=== PATIENT | female | born 1945 | race Caucasian/White ===

== ENCOUNTER 2023-07-03 10:39 | Outpatient (REF) | payer MEDICARE, SELFPAY ==
[2023-07-03 13:55] LABS: Hematocrit 49.9 % (37.0-47.0); Hemoglobin 16.3 g/dl (12.0-16.0); Mean Corpuscular HGB Conc 32.7 g/dl (31.0-35.0); Mean Corpuscular Hemoglobin 31.2 pg (27.0-33.0); Mean Corpuscular Volume 95.4 fL (80.0-98.0); Mean Platelet Volume 10.9 fL (9.4-12.3); Platelet Count 374 X10*3/uL (160-400); Red Blood Count 5.23 X10*6/uL (4.20-5.50); Red Cell Distribution Width 13.6 % (11.0-16.0); White Blood Count 11.3 X10*3/uL (4.8-10.8)
[2023-07-03 14:07] LABS: Alanine Aminotransferase 23 U/L (0-31); Albumin Level 4.4 g/dL (3.5-5.0); Alkaline Phosphatase 90 U/L (39-117); Anion Gap 15 (12-20); Aspartate Amino Transferase 17 U/L (5-31); Bilirubin Total 0.4 mg/dL (0.0-1.0); Blood Urea Nitrogen 13 mg/dL (9-16); Calcium 10.2 mg/dL (8.4-10.2); Carbon Dioxide 27 mmol/L (22-29); Chloride 103 mmol/L (96-108); Cholesterol 259 mg/dL; Estimated Glomerular Filt Rate 57; Glucose Fasting 108 mg/dL (60-99); HDL Cholesterol 77 mg/dL; LDL Cholesterol Calculated 152 mg/dl; Potassium 3.5 mmol/L (3.3-5.1); Sodium 141 mmol/L (135-145); Total Protein 7.6 g/dL (6.5-8.0); Triglycerides 150 mg/dL
[2023-07-03 14:24] LABS: SLIDE REVIEW MANUAL DIFF
[2023-07-03 14:26] LABS: Thyroid Stimulating Hormone 1.16 uIU/mL (0.32-4.0)
[2023-07-03 15:35] LABS: Band Neutrophils Percent 0 % (3-5); Lymphocytes Absolute Manual 5.8 X10*3/uL (1.2-4.9); Lymphocytes Percent Manual 51 % (20-40); Monocytes Absolute Manual 0.9 X10*3/uL (0.1-1.2); Monocytes Percent Manual 8 % (2-11); Neutrophils Absolute Manual 4.6 X10*3/uL (2.0-8.3); Neutrophils Percent Manual 41 % (45-73)
[2023-07-03 15:36] LABS: Platelet Estimate NORMAL (NORMAL); Platelet Morphology Comment NORMAL; RBC Morphology NORMAL; Smudge Cells PRESENT
== END 2023-07-03 10:40 | disposition home or self-care (01) ==
LOC: HO.HMGCLDS 10:39
PROVIDERS: PCP Internal Medicine; Visit Provider Internal Medicine
DX: I10 Essential (primary) hypertension (principal); E78.00 Pure hypercholesterolemia, unspecified; R60.0 Localized edema
CPT/HCPCS: 36415; 80053; 80061; 84443; 85007; 85025; 85027

== ENCOUNTER 2024-09-30 11:30 | Outpatient (REF) | payer MEDICARE, SELFPAY ==
[2024-09-30 13:35] LABS: MANUAL DIFF FLAG NO
[2024-09-30 13:40] LABS: Basophils Absolute Auto 0.1 X10*3/uL (0.0-0.2); Basophils Percent Auto 0.8 % (0-2); Eosinophils Absolute Auto 0.1 X10*3/uL (0.0-0.4); Eosinophils Percent Auto 0.6 % (0-4); Hematocrit 48.8 % (37.0-47.0); Hemoglobin 15.9 g/dl (12.0-16.0); Imm Gran Abs Auto 0.03 X10*3/uL (0.00-0.03); Imm Gran Pct Auto 0.3 % (0.0-0.4); Lymphocytes Absolute Auto 4.6 X10*3/uL (1.2-4.9); Lymphocytes Percent Auto 43.3 % (20-40); Mean Corpuscular HGB Conc 32.6 g/dl (31.0-35.0); Mean Corpuscular Hemoglobin 30.9 pg (27.0-33.0); Mean Corpuscular Volume 94.8 fL (80.0-98.0); Mean Platelet Volume 10.5 fL (9.4-12.3); Monocytes Absolute Auto 0.9 X10*3/uL (0.1-1.2); Platelet Count 362 X10*3/uL (160-400); Red Blood Count 5.15 X10*6/uL (4.20-5.50); Red Cell Distribution Width 13.3 % (11.0-16.0); White Blood Count 10.7 X10*3/uL (4.8-10.8)
[2024-09-30 14:32] LABS: Alanine Aminotransferase 19 U/L (0-31); Albumin Level 4.5 g/dL (3.5-5.0); Alkaline Phosphatase 84 U/L (39-117); Anion Gap 15 (12-20); Aspartate Amino Transferase 24 U/L (5-31); Bilirubin Total 0.5 mg/dL (0.0-1.0); Blood Urea Nitrogen 17 mg/dL (9-16); Calcium 10.8 mg/dL (8.4-10.2); Carbon Dioxide 24 mmol/L (22-29); Chloride 105 mmol/L (96-108); Cholesterol 246 mg/dL (<200); Estimated Glomerular Filt Rate > 60; Glucose Random 107 mg/dL (60-115); HDL Cholesterol 74 mg/dL (>40); LDL Cholesterol Calculated 148 mg/dL (<100); Potassium 3.7 mmol/L (3.3-5.1); Sodium 140 mmol/L (135-145); Total Protein 7.6 g/dL (6.5-8.0); Triglycerides 123 mg/dL (<150)
[2024-09-30 14:38] LABS: Vitamin D 25-OH Total 34.4 ng/mL (>30)
== END 2024-09-30 11:31 | disposition home or self-care (01) ==
LOC: HO.10HDL 11:30
PROVIDERS: Visit Provider Internal Medicine
DX: I10 Essential (primary) hypertension (principal); E78.00 Pure hypercholesterolemia, unspecified; R60.0 Localized edema
CPT/HCPCS: 36415; 80053; 80061; 82306; 84443; 85025

== ENCOUNTER 2025-09-15 11:27 | Outpatient (AMB) | payer MEDICARE, SELFPAY ==
--- NOTE | 2025-09-15 11:04 | A.OFFPC_ITS ---
Vital Signs 09/15/25 11:33 Height 5 ft 8 in Weight 172 lb 2 oz BMI 26.2 BP 148/90 H Blood Pressure Location Rt brachial Position Sitting Pulse 74 Pulse Source Pulse Oximeter Temp 97.1 F Temp Source Temporal Artery Scan Pulse Oximetry (%) 98 Oxygen Delivery Method Room Air Intake Visit Reasons: NARCISO / Dr Erickson Dishwasher Required: No Accompanied by: Self / Same As Patient Allergies No Known Allergies Allergy (Verified 09/15/25 11:05) Medication List - Last Reconciled 09/15/25 by Ryland Mills MD amlodipine 10 mg PO DAILY losartan 100 mg PO DAILY Tobacco use date assessed: 09/15/25 Fall risk assessment: No Falls in past year Last assessed Fall Risk: 09/15/25 Dental Screening Dental Screen Date: 09/15/25 Did you have a dental visit in the last 12 months?: No Did you have a dental problem in the last 6 months where you did not have access to dental care?: No HPI HPI Comments History of Present Illness Details The patient is a 80-year-old female presenting for a new patient evaluation and management of chronic conditions. She has a history of hypertension, for which she currently takes amlodipine 10 mg and losartan 100 mg. She reports having stopped furosemide about four years ago, as it was prescribed by a previous doctor, but she never experienced water retention or s welling. She monitors her blood pressure at home, with readings typically around 140 over 60-70 mmHg for the past few years. The patient reports no other medical conditions. Her surgical history includes a total hysterectomy with oophorectomy at age 16 and a tonsillectomy as a teenager. She has a remote history of social smoking for about five to six years during her teenage years but has since stopped. She reports consuming one to two alcoholic drinks most evenings. The patient denies any history of illicit drug use. Family history is significant for cancer; her mother was diagnosed with diffuse abdominal cancer at age 89 and the same year, and her brother was diagnosed with bone cancer at age 55 and at 58. Regarding health screenings, she reports not having had a mammogram for many years, never having had a colonoscopy, and declining a bone density scan. The patient reports recent onset of mild knee pain upon waking. She has been using a walker for the past five years as a protective measure to aid mobility. 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 Medical History: - Hypertension - Arthritis - History of social smoking in teenage y ears Surgical History: - Total hysterectomy with oophorectomy a t age 16 - Tonsillectomy as a teenager Medications: - Amlodipine 10 mg for hypertension - Losartan 100 mg for hypertension - Furosemide (discontinued approximately 4 years ago) Family History: - Mother was diagnosed with metastatic a bdominal cancer at age 89 and the same year. - Brother was diagnosed with bone cancer at age 55 and at age 58. Diagnostic Results: - Labs: Prior blood tests from 12 months ago showed normal liver and kidney function. Social History: - Substance Use: The patient reports dri nking one to two alcoholic beverages most evenings. - She has a history of social smoking fo r five to six years as a teenager but has since quit. - She denies any history of illicit subs tance use, including marijuana, heroin, or cocaine. - Living Situation: The patient lives in a large senior apartment building and is not socially isolated. - Functional Status: She uses a walker a s a protective measure, which she has done for the past five years, and ambulates independently. 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 - Nutrition: The patient notes that she has recently lost a few pounds intentionally. [facility] Medical History (Updated 09/15/25 @ 11:59 by Ryland Mills MD) Alcohol use Arthritis Hypertension Family History (Updated 09/15/25 @ 11:39 by Shelbi Figueredo MA) Mother No problems noted. Father No problems noted. Social History Housing: Apartment Patient Tobacco Use Status: Former Tobacco user e-Cigarette/Vaping Use: Former Use service: No Current occupational status: retired Cognitive needs: Yes (walker) Hearing needs: No Vision needs: Yes (reading glasses) Questionnaire PHQ-9 Over the last 2 weeks, how often have you been bothered by any of the following problems? 1. Little interest or pleasure in doing things: not at all 2. Feeling down, depressed, or hopeless: not at all 3. Trouble falling or staying asleep, or sleeping too much: not at all 4. Feeling tired or having little energy: not at all 5. Poor appetite or overeating: not at all 6. Feeling bad about yourself - or that you are a failure or have let yourself or your family down: not at all 7. Trouble concentrating on things, such as reading the newspaper or watching television: not at all 8. Moving or speaking so slowly that other people could have noticed. Or the opposite - being so fidgety or restless that you have been moving around a lot more than usual: not at all 9. Thoughts that you would be better off or of hurting yourself in some way: not at all Total score: 0 Depression Screening Interpretation: Negative Depression Screening Done: Yes 21948 - PHQ-9 Billing: Yes Source: Developed by Drs. Julio Cesar Shahid, Jennifer Espinal, Prasanth Perry and colleagues, with an educational ashleigh from [employer]. Thrive Questionnaire Date Thrive assessed: 09/15/25 I am a: Patient What is your living situation today?: I have a steady place to live Within the past 12 months, did the food you bought not last and you didn't have the money to get more?: Never true Within the past 12 months, did you worry whether your food would run out before you got money to buy more?: Never true Do you have trouble paying for medicines?: No Do you have trouble getting transportation to medical appointments?: No Do you have trouble paying your heating and electricity bill?: No Do you have trouble taking care of your child, family member or friend?: No Do you have trouble with day-to-day activities such as bathing, preparing meals, shopping, managing finances, etc.?: No Are you currently unemployed and looking for a job?: No Are you interested in more education?: No THRIVE Score: 0 AUDIT C Alcohol Use Questionnaire (AUDIT-C) 1. How often do you have a drink containing alcohol?: 4 or more times a week 2. How many drinks containing alcohol do you have on a typical day when you are drinking?: 1 or 2 3. How often do you have six or more drinks on one occasion?: Never Total Score: 4 Score Reviewed/Action Taken: Yes SHADI-7 AMB Questionnaire SHADI-7 Date SHADI - 7 assessed: 09/15/25 Feeling nervous, anxious, or on edge: 0 = Not at all Not being able to stop or control worryin = Not at all Worrying too much about different things: 0 = Not at all Trouble relaxin = Not at all Being so restless that it is hard to sit still: 0 = Not at all Becoming easily annoyed or irritable: 0 = Not at all Feeling afraid as if something awful might happen: 0 = Not at all Total SHADI-7 score (0-4 normal; 5-9 mild; 10-14 moderate; 15-21 severe): 0 Source: Developed by Drs. Julio Cesar Shahid, Jennifer Espinal, Prasanth Perry and colleagues, with an educational ashleigh from [employer]. SHADI-7 Assessment Billing SHADI-7 Assessment Tool: SHADI-7 Assessment 05686 Review of Systems Narrative - Constitutional: Reports intentional weight loss. - Cardiovascular: Denies chest pain. - Respiratory: Denies shortness of breath. - Gastrointestinal: Denies nausea and vomiting. - Genitourinary: Reports normal urination. - Musculoskeletal: Reports mild knee pain, particularly in the morning. - Skin: Denies any suspicious moles or lesions. All systems reviewed & are unremarkable except as reviewed in HPI and above Physical exam (Primary Care) Vital Signs: Last Vital Signs Temp 97.1 F 09/15/25 11:33 Pulse 74 09/15/25 11:33 BP 148/90 H 09/15/25 11:33 Pulse Ox 98 09/15/25 11:33 Oxygen Delivery Method Room Air 09/15/25 11:33 BMI result Body Mass Index 26.2 Tobacco/Smoking Status: Tobacco use Status Tobacco use date assessed 09/15/25 09/15/25 11:06 Patient Tobacco Use Status Former Tobacco user 09/15/25 11:40 e-Cigarette/Vaping Use Former Use 09/15/25 11:40 PHQ-9: PHQ-9 Score PHQ-9: Total score 0 09/15/25 11:46 Depression Screening Interpretation: Negative Thrive Assessment: Date of Thrive Assessment Date Thrive assessed 09/15/25 09/15/25 11:06 Narrative General: +Alert and oriented, Well nourished, No acute distress. Eye: Pupils are equal, round and reactive to light, Intact accommodation, Extraocular movements are intact, Normal conjunctiva, Vision unchanged. HENT: Normocephalic, Atraumatic, Tympanic membranes are clear, Normal hearing, Oral mucosa is moist, No pharyngeal erythema, Ear canals patent. Respiratory: Lungs CTA bilaterally, No wheeze, Respirations are non-labored. Cardiovascular: Regular rate, Regular rhythm, S1 auscultated, S2 auscultated, No murmur, Good pulses equal in all extremities, Normal peripheral perfusion, No edema. Gastrointestinal: Soft, Non-tender, Non-distended, Normal bowel sounds, No organomegaly. Musculoskeletal: Normal range of motion, Normal strength, No tenderness, No swelling, No deformity, Normal gait. Mild swelling noted in the knees. Integumentary: Warm, Dry, [place], Intact. No skin lesions or abnormal moles. Neurologic: Alert, Oriented, Normal sensory, Normal motor function, No focal defects, Cranial Nerves II-XII are grossly intact, Normal deep tendon reflexes. Psychiatric: Cooperative, Appropriate mood & affect, Normal judgment. Coding Level of Care Code New Pt Level 4 (30093) New Pt Prev Care >65yr (42837) Diagnoses Primary hypertension I10 Hypertension type: primary hypertension Arthritis M19.90 Alcohol use Z78.9 Additional Codes PHQ-9 - 86055 - PHQ-9 Billing: Yes ([id number]) SHADI-7 Assessment Billing - SHADI-7 Assessment Tool: SHADI-7 Assessment 04319 ([id number]) Assessment & Plan Assessment & Plan (1) Hypertension: Comment: - The patient's blood pressure is elevated in the office at 148/90 mmHg, which she attributes to anxiety. - She will continue her current regimen of amlodipine 10 mg and losartan 100 mg. - A blood pressure cuff will be sent to her home for self-monitoring. (Will try to have one sent) - Blood pressure will be re-evaluated at the next visit. Code(s): I10 - Essential (primary) hypertension Category: Medical Qualifiers: Hypertension type: primary hypertension Qualified Code(s): I10 - Essential (primary) hypertension (2) Arthritis: Comment: - The patient notes mild knee pain and has exam findings of arthritis in her hands. - She is encouraged to continue to ambulate and use her walker for safety and protection Code(s): M19.90 - Unspecified osteoarthritis, unspecified site Category: Medical (3) Alcohol use: Comment: - The patient reports daily consumption of 1-2 alcoholic drinks. - The importance of moderation was discussed. - Her previous blood work from a year ago showed normal liver and kidney function. Code(s): Z78.9 - Other specified health status Category: Social Hx Plan: Health Maintenance: - Screening: The patient has declined a mammogram, colonoscopy, and bone density scan at this time. - Labs: Blood work has been ordered to check blood counts, electrolytes, thyroid function, A1c, and cholesterol. - Substance Use: Discussed moderate alcohol intake. - Healthy Lifestyle: Encouraged to continue ambulating and using her walker to stay active and prevent falls. Patient was informed and verbally consented to the use of an ambient scribe for clinic note documentation during this visit. Plan I had a detailed discussion with the patient regarding her current health status. We addressed her elevated blood pressure reading of 148/90 mmHg, which she attributed to anxiety from the visit. I explained that we would not adjust her medications at this time but emphasized the importance of home monitoring. I informed her that we would arrange for a blood pressure cuff to be sent to her. We discussed her joint pain, and I encouraged her to continue staying active and using her walker for safety. I reviewed the recommendations for routine health screenings, including mammograms, colonoscopies, and bone density scans, all of which she declined. She agreed to undergo annual blood work, and I explained that we would check her blood counts, electrolytes, thyroid, and A1c. We also briefly touched on her daily alcohol consumption, and I advised moderation. A follow-up visit was scheduled for the spring, per her preference. Orders: Orders Hemoglobin A1c Today Z76.89 - Persons encountering health services in other specified circumstances Lipid Panel Today Z76.89 - Persons encountering health services in other specified circumstances TSH reflex Free T4 Today Z76.89 - Persons encountering health services in other specified circumstances Vitamin D 25-OH Total Today Z76.89 - Persons encountering health services in other specified circumstances Complete Blood Count Auto Diff Today Z76.89 - Persons encountering health services in other specified circumstances Comprehensive Met. Panel Today Z76.89 - Persons encountering health services in other specified circumstances Medications: Discontinued furosemide Discontinued Reason: Doctor's Order 20 mg PO DAILY 90 tabs 1RF Patient Instructions: - Please continue to take your amlodipine 10 mg and losartan 100 mg for your blood pressure as prescribed. - We will send a blood pressure cuff to your pharmacy for you to use at home. - Please check your blood pressure twice or three times a week. - Please go to the lab across the [place] today to get your blood drawn. - We will call you if there are any issues with your results. - It is important to keep walking and stay active. - Continue to use your walker to help you stay safe. - Your next follow-up appointment will be in the spring, around February or March.
[2025-09-15 11:33] VITALS: BP 148/90; PULSE 74; TEMP 36.2; O2SAT 98; BMI 26.2
== END 2025-09-15 11:55 | disposition home or self-care (01) ==
LOC: HO.HMCHD 11:27
PROVIDERS: PCP Internal Medicine; Visit Provider Student in an Organized Health Care Education/Training Program
DX: I10 Essential (primary) hypertension (principal); M17.0 Bilateral primary osteoarthritis of knee; Z78.9 Other specified health status

== ENCOUNTER 2025-09-15 12:18 | Outpatient (REF) | payer MEDICARE, SELFPAY ==
[2025-09-15 13:13] LABS: MANUAL DIFF FLAG NO
[2025-09-15 13:23] LABS: Hematocrit 47.3 % (37.0-47.0); Hemoglobin 15.2 g/dl (12.0-16.0); Imm Gran Abs Auto 0.03 X10*3/uL (0.00-0.03); Imm Gran Pct Auto 0.3 % (0.0-0.4); Lymphocytes Absolute Auto 3.8 X10*3/uL (1.2-4.9); Mean Corpuscular HGB Conc 32.1 g/dl (31.0-35.0); Mean Corpuscular Hemoglobin 30.6 pg (27.0-33.0); Mean Corpuscular Volume 95.4 fL (80.0-98.0); NRBC Abs Auto 0.000 X10*3/uL (0.0-0.012); NRBC Pct Auto 0.0 /100WBC (0.0-0.2); Platelet Count 300 X10*3/uL (160-400); Red Blood Count 4.96 X10*6/uL (4.20-5.50); White Blood Count 9.7 X10*3/uL (4.8-10.8)
[2025-09-15 13:48] LABS: Alanine Aminotransferase 16 U/L (0-31); Albumin Level 4.4 g/dL (3.5-5.0); Alkaline Phosphatase 79 U/L (39-117); Anion Gap 13 (12-20); Aspartate Amino Transferase 21 U/L (5-31); Blood Urea Nitrogen 14 mg/dL (9-16); Calcium 9.8 mg/dL (8.4-10.2); Carbon Dioxide 26 mmol/L (22-29); Chloride 106 mmol/L (96-108); Cholesterol 240 mg/dL (<200); Estimated Glomerular Filt Rate > 60; HDL Cholesterol 70 mg/dL (>40); Potassium 3.7 mmol/L (3.3-5.1); Sodium 141 mmol/L (135-145); Total Protein 7.1 g/dL (6.5-8.0); Triglycerides 116 mg/dL (<150)
== END 2025-09-15 12:19 | disposition home or self-care (01) ==
LOC: HO.10HDL 12:18
PROVIDERS: Visit Provider Student in an Organized Health Care Education/Training Program
DX: I10 Essential (primary) hypertension (principal); M25.561 Pain in right knee; M25.562 Pain in left knee; M19.90 Unspecified osteoarthritis, unspecified site; Z78.9 Other specified health status; Z99.89 Dependence on other enabling machines and devices; Z87.891 Personal history of nicotine dependence; Z79.899 Other long term (current) drug therapy; Z76.89 Persons encountering health services in other specified circumstances
CPT/HCPCS: 36415; 80053; 80061; 82306; 83036; 84443; 85025; 96127; 99202